=== PATIENT | female | born 1980 | race Caucasian/White ===

== ENCOUNTER 2020-07-01 21:19 | Emergency (ER) | payer OTHER ==
[~2020-07-01] VITALS: Ht 170.2 cm; Wt 90.7 kg
[~2020-07-01 21:19] MED LIST: HYDR-3165 PO; LEVO75TA5 PO; NORE0.3520 PO; OMEP20CA5 PO; ONDA4TAB10 PO; OXYC1TAB15 PO; SERT50TA PO
[2020-07-01 21:20] VITALS: BP 125/77
[2020-07-01] MEDS ORDERED: CEPH-264 PO (21:52)
--- NOTE | 2020-07-01 21:52 | PHYS DOC ---
Past History Past Medical History: Depression, GERD, Other Additional Past Medical Histor: hashimottos and silliac Past Surgical History: Cholecystectomy Alcohol Use: Occasionally Drug Use: None General Adult EDM: Chief Complaint: BREAST PROBLEM HPI: HPI: 39-year-old female presents with concern for left breast mastitis. The patient started to have a small red area yesterday and it is grown significantly within 24 hours. She has not had a fever at home. She has had mastitis in the past. No history of MRSA. She is breast-feeding currently. She has no other complaints at this time. Review of Systems: Review of Systems: Constitutional: Denies fever or chills Eyes: Denies change in visual acuity HENT: Denies nasal congestion or sore throat Respiratory: Denies cough or shortness of breath Cardiovascular: Denies chest pain or edema GI: Denies abdominal pain, nausea, vomiting, bloody stools or diarrhea : Denies dysuria Musculoskeletal: Denies back pain or joint pain Integument: Rash to the left breast Neurologic: Denies headache, focal weakness or sensory changes Endocrine: Denies polyuria or polydipsia Lymphatic: Denies swollen glands Psychiatric: Denies depression or anxiety Heart Score: Risk Factors: Risk Factors: DM, Current or recent (<one month) smoker, HTN, HLP, family history of CAD, obesity. Risk Scores: Score 0 - 3: 2.5% MACE over next 6 weeks - Discharge Home Score 4 - 6: 20.3% MACE over next 6 weeks - Admit for Clinical Observation Score 7 - 10: 72.7% MACE over next 6 weeks - Early Invasive Strategies Allergies: Allergies: Allergies Coded Allergies Type Severity Reaction Last Updated Verified promethazine Allergy Severe hallucinations 08/18/15 Yes hydrocodone Allergy Unknown sob 08/18/15 Yes Physical Exam: PE: Constitutional: Well developed, well nourished, no acute distress, non-toxic estevan earance. [] HENT: Normocephalic, atraumatic, bilateral external ears normal, oropharynx moist, no oral exudates, nose normal. [] Eyes: PERRLA, EOMI, conjunctiva normal, no discharge. [] Neck: Normal range of motion, no tenderness, supple, no stridor. [] Cardiovascular:Heart rate regular rhythm, no murmur [] Lungs & Thorax: Bilateral breath sounds clear to auscultation [] Abdomen: Bowel sounds normal, soft, no tenderness, no masses, no pulsatile masses. [] Skin: 7 cm x 7 cm cellulitis of the left lateral breast, no palpable abscess. [] Back: No tenderness, no CVA tenderness. [] Extremities: No tenderness, no cyanosis, no clubbing, ROM intact, no edema. [] Neurologic: Alert and oriented X 3, normal motor function, normal sensory function, no focal deficits noted. [] Psychologic: Affect normal, judgement normal, mood normal. [] Current Patient Data: Vital Signs: Vital Signs Date Time Temp Pulse Resp B/P (MAP) Pulse Ox O2 Delivery O2 Flow Rate FiO2 07/01/20 21:20 98.6 75 16 125/77 (93) 96 Room Air EKG: EKG: [] Radiology/Procedures: Radiology/Procedures: [] Course & Med Decision Making: Course & Med Decision Making Pertinent Labs and Imaging studies reviewed. (See chart for details) I examined the patient in the presence of the nurse, Naomi. The patient does appear to have cellulitis of the left lateral breast. She is not allergic to Keflex. She has no risk factors for MRSA. I will treat her with Keflex 500 mg 4 times daily for 7 days. She is stable for discharge at this time. We will give her first dose in the emergency room. [] Marce Disclaimer: Marce Disclaimer: This electronic medical record was generated, in whole or in part, using a voice recognition dictation system. Departure Departure: Impression: Primary Impression: Mastitis Disposition: HOME/RESIDENCE PRIOR TO ADM Condition: STABLE Referrals: PCP,NO (PCP) Patient Instructions: , Mastitis, Mastitis, [id number] Scripts Cephalexin (KEFLEX) 500 Mg Capsule 1 CAP PO QID for mastitis for 7 Days, #28 CAP 0 Refills Prov: GHULAM ARCE DO 07/01/20 Justification of Admission: Justification of Admission: Justification of Admission Dx: N/A GHULAM ARCE DO Jul 01, 2020 21:52
[2020-07-01] MEDS ORDERED: CEPHALEXIN 250 MG CAPSULE PO ONE (22:30)
== END 2020-07-01 22:00 | disposition home or self-care (01) ==
LOC: ER 21:19
DX: N61.0 Mastitis without abscess (principal); K21.9 Gastro-esophageal reflux disease without esophagitis; F32.9 Major depressive disorder, single episode, unspecified; Z88.8 Allergy status to other drugs, medicaments and biological substances; Z88.5 Allergy status to narcotic agent
CPT/HCPCS: 99283

== ENCOUNTER 2020-10-16 20:22 | Emergency (ER) | payer OTHER ==
[~2020-10-16] VITALS: Ht 170.2 cm; Wt 97.8 kg
[~2020-10-16 20:22] MED LIST changes: +CEPH-264 PO
[2020-10-16 20:36] VITALS: BP 139/79
[2020-10-16] MEDS ORDERED: KETOROLAC 15 MG/ML VIAL. IVP ONE (20:45)
[2020-10-16] MEDS ORDERED: IV NORMAL SALINE 1,000ML 1,000 ML IV ONE (20:45)
[2020-10-16] MEDS ORDERED: ONDANSETRON PF 4 MG/2 ML VIAL. IVP ONE (21:00)
[2020-10-16 21:05] LABS: BACTERIA,URINE 0 /HPF (0-FEW); BILIRUBIN,URINE NEG (NEG); CLARITY,URINE CLEAR; COLOR,URINE COLORLESS; GLUCOSE,URINE NEG (NEG); NITRITE,URINE NEG (NEG); RBC,URINE 0 /HPF (0-2); SQUAMOUS EPITHELIAL CELL,UR MANY /LPF; UROBILINOGEN,URINE 0.2 mg/dL (0.2 mg/dL); WBC,URINE 0 /HPF (0-4)
[2020-10-16] MEDS ORDERED: IOHEXOL 300 MG/ML 75 ML VIAL. IV ONE (21:15)
[2020-10-16 21:20] LABS: BASO # 0.1 x10^3/uL (0.0-0.2); BASO % 1 % (0-3); EOS # 0.2 x10^3/uL (0.0-0.7); EOS % 2 % (0-3); HEMATOCRIT 39.5 % (36.0-47.0); HEMOGLOBIN 12.8 g/dL (12.0-15.5); LYMPH # 2.6 x10^3/uL (1.0-4.8); LYMPH % 28 % (24-48); MEAN CORPUSCULAR HEMOGLOBIN 27 pg (25-35); MEAN CORPUSCULAR HGB CONC 33 g/dL (31-37); MEAN CORPUSCULAR VOLUME 83 fL (79-100); MONO # 0.5 x10^3/uL (0.0-1.1); MONO % 5 % (0-9); NEUT # 6.1 x10^3uL (1.8-7.7); NEUT % 65 % (31-73); PLATELET COUNT 294 x10^3/uL (140-400); RED BLOOD COUNT 4.73 x10^6/uL (3.50-5.40); RED CELL DISTRIBUTION WIDTH 14.9 % (11.5-14.5); WHITE BLOOD COUNT 9.4 x10^3/uL (4.0-11.0)
[2020-10-16 21:27] LABS: CALCIUM 8.6 mg/dL (8.5-10.1); GFR 62.1; POTASSIUM 4.4 mmol/L (3.5-5.1)
[2020-10-16 21:32] LABS: ALBUMIN/GLOBULIN RATIO 1.1 (1.0-1.7); TOTAL BILIRUBIN 0.3 mg/dL (0.2-1.0); TOTAL PROTEIN 7.6 g/dL (6.4-8.2)
--- NOTE | 2020-10-16 21:44 | RAD ---
EXAM: Abdomen and pelvis CT with intravenous contrast. HISTORY: Right lower quadrant pain. TECHNIQUE: Computed tomographic images of the abdomen and pelvis were obtained following the administration of intravenous contrast. Multiplanar reformatting was performed. *One or more of the following individualized dose reduction techniques were utilized for this examination: 1. Automated exposure control. 2. Adjustment of the mA and/or kV according to patient size. 3. Use of iterative reconstruction technique. COMPARISON: 06/16/2015. FINDINGS: Evaluation of the lower thorax demonstrates a slightly increased suspected complicated right pericardial cyst measuring 3.0 cm. The minimal interval plant changer a greater than 5 year interval favors benignity. There is no infiltrate, pleural effusion or pneumothorax. The heart is normal in size. There is lingular atelectasis or scarring. There is no suspicious hepatic lesion. The gallbladder is surgically absent. The pancreas, spleen, adrenal glands and kidneys are unremarkable. The urinary bladder is unremarkable. The appendix is unremarkable. There is no evidence of bowel obstruction. There is no abnormal bowel wall thickening. There is a 1.6 cm oval fat density lesion with surrounding stranding within the right lower quadrant lateral to the proximal ascending colon. The imaging appearance favors changes due to epiploic appendagitis or fat infarction. There is a small amount of nonspecific pelvic free fluid. The aorta is normal in caliber. There is no lymphadenopathy. There is no suspicious osseous lesion. IMPRESSION: 1. 1.6 cm fat density lesion with surrounding stranding lateral to the proximal ascending colon, the appearance of which favors acute appendagitis or fat infarction. 2. Slight interval increase in a 3.0 cm right pericardial cyst. This is of no clinical significance. 3. Small amount of nonspecific pelvic free fluid. This is within physiologic limits for a premenopausal female. Electronically signed by: Anna Zhao MD (10/16/2020 9:41 PM) [facility]
--- NOTE | 2020-10-16 22:14 | PHYS DOC ---
Past History Past Medical History: Depression, GERD, Other Additional Past Medical Histor: hashimottos and silliac Past Surgical History: Cholecystectomy Alcohol Use: Occasionally Drug Use: None General Adult EDM: Chief Complaint: ABDOMINAL PAIN HPI: HPI: Patient is a [age] year old [sex] who presents with [] Review of Systems: Review of Systems: Constitutional: Denies fever or chills Eyes: Denies change in visual acuity HENT: Denies nasal congestion or sore throat Respiratory: Denies cough or shortness of breath Cardiovascular: Denies chest pain or edema GI: Denies abdominal pain, nausea, vomiting, bloody stools or diarrhea : Denies dysuria Musculoskeletal: Denies back pain or joint pain Integument: Denies rash Neurologic: Denies headache, focal weakness or sensory changes Endocrine: Denies polyuria or polydipsia Lymphatic: Denies swollen glands Psychiatric: Denies depression or anxiety Current Medications: Current Meds: Current Medications Medications (Trade) Dose Ordered Sig/Conrado Start Time Stop Time Status Last Admin Dose Admin Iohexol (Omnipaque 300 Mg/ml) 75 ml 1X ONCE 10/16/20 21:15 10/16/20 21:17 DC 10/16/20 21:23 75 ML Ketorolac Tromethamine (Toradol 15mg Vial) 15 mg 1X ONCE 10/16/20 20:45 10/16/20 20:48 DC 10/16/20 20:45 15 MG Ondansetron HCl (Zofran) 4 mg 1X ONCE 10/16/20 21:00 10/16/20 21:01 DC 10/16/20 21:00 4 MG Sodium Chloride 1,000 ml @ 1,000 mls/hr 1X ONCE 10/16/20 20:45 10/16/20 21:44 DC 10/16/20 20:45 1,000 MLS/HR Allergies: Allergies: Allergies Coded Allergies Type Severity Reaction Last Updated Verified promethazine Allergy Severe hallucinations 08/18/15 Yes hydrocodone Allergy Unknown sob 08/18/15 Yes Physical Exam: PE: Constitutional: Well developed, well nourished, no acute distress, non-toxic appearance. [] HENT: Normocephalic, atraumatic, bilateral external ears normal, oropharynx moist, no oral exudates, nose normal. [] Eyes: PERRLA, EOMI, conjunctiva normal, no discharge. [] Neck: Normal range of motion, no tenderness, supple, no stridor. [] Cardiovascular:Heart rate regular rhythm, no murmur [] Lungs & Thorax: Bilateral breath sounds clear to auscultation [] Abdomen: Bowel sounds normal, soft, no tenderness, no masses, no pulsatile masses. [] Skin: Warm, dry, no erythema, no rash. [] Back: No tenderness, no CVA tenderness. [] Extremities: No tenderness, no cyanosis, no clubbing, ROM intact, no edema. [] Neurologic: Alert and oriented X 3, normal motor function, normal sensory function, no focal deficits noted. [] Psychologic: Affect normal, judgement normal, mood normal. [] Current Patient Data: Labs: Laboratory Tests Test 10/16/20 20:43 10/16/20 20:47 10/16/20 21:03 Urine Collection Type Unknown Urine Color Colorless Urine Clarity Clear Urine pH 5.5 Urine Specific [place] <=1.005 Urine Protein Neg (NEG-TRACE) Urine Glucose (UA) Neg mg/dL (NEG) Urine Ketones (Stick) Neg mg/dL (NEG) Urine Blood Neg (NEG) Urine Nitrite Neg (NEG) Urine Bilirubin Neg (NEG) Urine Urobilinogen Dipstick 0.2 mg/dL (0.2 mg/dL) Urine Leukocyte Esterase Trace (NEG) Urine RBC 0 /HPF (0-2) Urine WBC 0 /HPF (0-4) Urine Squamous Epithelial Cells Many /LPF Urine Bacteria 0 /HPF (0-FEW) POC Urine HCG, Qualitative hcg negative (Negative) White Blood Count 9.4 x10^3/uL (4.0-11.0) Red Blood Count 4.73 x10^6/uL (3.50-5.40) Hemoglobin 12.8 g/dL (12.0-15.5) Hematocrit 39.5 % (36.0-47.0) Mean Corpuscular Volume 83 fL (79-100) Mean Corpuscular Hemoglobin 27 pg (25-35) Mean Corpuscular Hemoglobin Concent 33 g/dL (31-37) Red Cell Distribution Width 14.9 % (11.5-14.5) H Platelet Count 294 x10^3/uL (140-400) Neutrophils (%) (Auto) 65 % (31-73) Lymphocytes (%) (Auto) 28 % (24-48) Monocytes (%) (Auto) 5 % (0-9) Eosinophils (%) (Auto) 2 % (0-3) Basophils (%) (Auto) 1 % (0-3) Neutrophils # (Auto) 6.1 x10^3uL (1.8-7.7) Lymphocytes # (Auto) 2.6 x10^3/uL (1.0-4.8) Monocytes # (Auto) 0.5 x10^3/uL (0.0-1.1) Eosinophils # (Auto) 0.2 x10^3/uL (0.0-0.7) Basophils # (Auto) 0.1 x10^3/uL (0.0-0.2) Sodium Level 136 mmol/L (136-145) Potassium Level 4.4 mmol/L (3.5-5.1) Chloride Level 102 mmol/L (98-107) Carbon Dioxide Level 25 mmol/L (21-32) Anion Gap 9 (6-14) Blood Urea Nitrogen 10 mg/dL (7-20) Creatinine 1.0 mg/dL (0.6-1.0) Estimated GFR (Cockcroft-Gault) 62.1 BUN/Creatinine Ratio 10 (6-20) Glucose Level 95 mg/dL (70-99) Calcium Level 8.6 mg/dL (8.5-10.1) Magnesium Level 2.0 mg/dL (1.8-2.4) Total Bilirubin 0.3 mg/dL (0.2-1.0) Aspartate Amino Transferase (AST) 19 U/L (15-37) Alanine Aminotransferase (ALT) 22 U/L (14-59) Alkaline Phosphatase 50 U/L (46-116) Total Protein 7.6 g/dL (6.4-8.2) Albumin 4.0 g/dL (3.4-5.0) Albumin/Globulin Ratio 1.1 (1.0-1.7) Lipase 121 U/L (73-393) Vital Signs: Vital Signs Date Time Temp Pulse Resp B/P (MAP) Pulse Ox O2 Delivery O2 Flow Rate FiO2 10/16/20 20:36 97.8 90 16 139/79 (99) 98 Room Air EKG: EKG: [] Radiology/Procedures: Radiology/Procedures: PROCEDURE: CT ABD PELV W/ IV CONTRST ONLY EXAM: Abdomen and pelvis CT with intravenous contrast. HISTORY: Right lower quadrant pain. TECHNIQUE: Computed tomographic images of the abdomen and pelvis were obtained following the administration of intravenous contrast. Multiplanar reformatting was performed. *One or more of the following individualized dose reduction techniques were utilized for this examination: 1. Automated exposure control. 2. Adjustment of the mA and/or kV according to patient size. 3. Use of iterative reconstruction technique. COMPARISON: 06/16/2015. FINDINGS: Evaluation of the lower thorax demonstrates a slightly increased suspected complicated right pericardial cyst measuring 3.0 cm. The minimal interval change control specialist a greater than 5 year interval favors benignity. There is no infiltrate, pleural effusion or pneumothorax. The heart is normal in size. There is lingular atelectasis or scarring. There is no suspicious hepatic lesion. The gallbladder is surgically absent. The pancreas, spleen, adrenal glands and kidneys are unremarkable. The urinary bladder is unremarkable. The appendix is unremarkable. There is no evidence of bowel obstruction. There is no abnormal bowel wall thickening. There is a 1.6 cm oval fat density lesion with surrounding stranding within the right lower quadrant lateral to the proximal ascending colon. The imaging appearance favors changes due to epiploic appendagitis or fat infarction. There is a small amount of nonspecific pelvic free fluid. The aorta is normal in caliber. There is no lymphadenopathy. There is no suspicious osseous lesion. IMPRESSION: 1. 1.6 cm fat density lesion with surrounding stranding lateral to the proximal ascending colon, the appearance of which favors acute appendagitis or fat infarction. 2. Slight interval increase in a 3.0 cm right pericardial cyst. This is of no clinical significance. 3. Small amount of nonspecific pelvic free fluid. This is within physiologic limits for a premenopausal female. Electronically signed by: Anna Zhao MD (10/16/2020 9:41 PM) [facility] Course & Med Decision Making: Course & Med Decision Making Pertinent Labs and Imaging studies reviewed. (See chart for details) [] Marce Disclaimer: Marce Disclaimer: This electronic medical record was generated, in whole or in part, using a voice recognition dictation system. Departure Departure: Impression: Primary Impression: Epiploic appendagitis Disposition: 01 DC HOME SELF CARE/HOMELESS Condition: STABLE Referrals: PCP,UNKNOWN (PCP) Patient Instructions: Abdominal Pain, [id number] Additional Instructions: Epiploic appendagitis is a rare condition that causes intense stomach pain. It's often mistaken for other conditions, such as diverticulitis or appendicitis. It happens when you lose blood flow to very small pouches of fat that are situated over the colon, or large intestine The treatment for this condition is pain control and time. No surgery is warranted. Symptoms will resolve. Scripts Ondansetron (ONDANSETRON ODT) 4 Mg Tab.rapdis 1 TAB PO PRN Q6-8HRS PRN for NAUSEA, #16 TAB Prov: KARIS BOO DO 10/16/20 Acetaminophen With Codeine (ACETAMINOPHEN-COD #4 TABLET) 1 Each Tablet 1 EACH PO Q4-6HRS PRN for PAIN, #10 TAB Prov: KARIS BOO DO 10/16/20 KARIS BOO DO Oct 16, 2020 22:14
[2020-10-16] MEDS ORDERED: ACET-1871 PO (22:31)
[2020-10-16] MEDS ORDERED: ONDA4TAB12 PO (22:31)
== END 2020-10-16 22:50 | disposition home or self-care (01) ==
LOC: ER 20:22
DX: K63.89 Other specified diseases of intestine (principal); F32.9 Major depressive disorder, single episode, unspecified; K21.9 Gastro-esophageal reflux disease without esophagitis; Z90.49 Acquired absence of other specified parts of digestive tract; Z88.8 Allergy status to other drugs, medicaments and biological substances; Z88.5 Allergy status to narcotic agent
CPT/HCPCS: 36415; 74177; 80053; 81001; 81025; 83690; 83735; 85025; 87086; 87147; 96361; 96374; 96375; 99285; J1885; J2405; J7030; Q9967

== ENCOUNTER → 2021-01-30 | Outpatient (CLI) | payer OTHER ==
[~2021-01-30] MED LIST changes: +ACET-1871 PO; +ONDA4TAB12 PO
--- NOTE | 2021-01-30 13:46 | RAD ---
INDICATION: Reason: MENORRHAGIA, DYSMENORRHEA / Spl. Instructions: / History: COMPARISON: October 16, 2020. TECHNIQUE: Grayscale and color ultrasound images uterus and adnexa. FINDINGS: Uterus: 90 x 51 x 38 mm. 6 mm endometrial stripe Right Ovary: 25 x 18 x 13 mm. Left Ovary: 25 x 21 x 13 mm. Vascular flow identified to bilateral ovaries. IMPRESSION: * Vascular flow seen to the ovaries. Electronically signed by: Patrick De Leon MD (01/30/2021 1:43 PM) [id number]
== END ==
LOC: US 13:04
PROVIDERS: ATTEND Obstetrics & Gynecology
DX: N92.0 Excessive and frequent menstruation with regular cycle (principal); N94.6 Dysmenorrhea, unspecified
CPT/HCPCS: 76856

== ENCOUNTER → 2021-07-17 | Outpatient (CLI) | payer OTHER ==
--- NOTE | 2021-07-17 15:45 | RAD ---
Right ankle 3 views. HISTORY: Ankle pain, twisted ankle 3 views were taken of the right ankle. There is not evidence of an acute fracture or osseous abnormal ity. IMPRESSION: 1. No acute fracture noted in the right ankle. Electronically signed by: Orlando Hercules MD (07/17/2021 3:42 PM) [facility]
== END ==
LOC: RAD 14:23
PROVIDERS: ATTEND Nurse Practitioner Family
DX: S93.401A Sprain of unspecified ligament of right ankle, initial encounter (principal); M25.571 Pain in right ankle and joints of right foot; X58.XXXA Exposure to other specified factors, initial encounter; Y93.89 Activity, other specified; Y92.89 Other specified places as the place of occurrence of the external cause; Y99.8 Other external cause status
CPT/HCPCS: 73610

== ENCOUNTER → 2022-03-20 | Outpatient (CLI) | payer OTHER ==
[~2022-03-20] MED LIST changes: -ACET-1871 PO; +ACET1TAB63 PO
--- NOTE | 2022-03-20 10:58 | RAD ---
AP, lateral, and oblique views of the left hand were performed. History: Left hand pain particularly in the first digit Comparison: none. No fracture or dislocation is seen. The joint spaces are normal in appearance. No significant soft tissue swelling is seen. Impression: 1. Negative exam of the left hand. Electronically signed by: Jose David Bazzi MD (03/20/2022 10:55 AM) [id number]
== END ==
LOC: RAD 09:15
PROVIDERS: ATTEND Nurse Practitioner Family
DX: S69.92XA Unspecified injury of left wrist, hand and finger(s), initial encounter (principal); X58.XXXA Exposure to other specified factors, initial encounter; Y93.89 Activity, other specified; Y92.89 Other specified places as the place of occurrence of the external cause; Y99.8 Other external cause status
CPT/HCPCS: 73130